=== PATIENT | male | born 1960 | race Caucasian/White ===

== ENCOUNTER 2021-12-01 19:10 | Emergency (ER) | payer OTHER ==
[~2021-12-01] VITALS: Ht 187.9 cm; Wt 104.3 kg
[2021-12-01] MEDS ORDERED: CEPHALEXIN500 M1 PO (21:14)
== END 2021-12-01 23:06 | disposition home or self-care (01) ==
LOC: ED 19:10
DX: S01.521A Laceration with foreign body of lip, initial encounter (principal); Z23 Encounter for immunization; W22.8XXA Striking against or struck by other objects, initial encounter; Y93.89 Activity, other specified; Y92.89 Other specified places as the place of occurrence of the external cause; Y99.8 Other external cause status